=== PATIENT | male | born 1945 | race Caucasian/White ===

== ENCOUNTER 2018-03-27 15:08 | Emergency (ER) | payer MEDICARE ==
[~2018-03-27] VITALS: Ht 180.3 cm; Wt 104.3 kg
[2018-03-27] MEDS ORDERED: ACETAMINOPHEN 325 MG TAB PO STA (15:24)
[2018-03-27] MEDS ORDERED: ENALAPRILAT IV INJ 1.25 MG/ML VIAL IV STA (15:27)
[2018-03-27] MEDS ORDERED: LIDOCAINE HCL 1% LOCAL INJ 20 ML VIAL INJ STA (15:27)
[2018-03-27] MEDS ORDERED: KETOROLAC TROMETHAMINE 30 MG/ML VIAL IV ONE (15:30)
[2018-03-27] MEDS ORDERED: FAMOTIDINE 20 MG/2 ML VIAL IV ONE (15:30)
[2018-03-27] MEDS ORDERED: CLONIDINE HCL 0.1 MG TAB PO ONE (15:30)
[2018-03-27] MEDS ORDERED: ONDANSETRON HCL INJ 2 MG/ML VIAL IV ONE (15:30)
[2018-03-27] MEDS ORDERED: CLONIDINE HCL 0.2 MG TAB PO ONE (16:15)
--- NOTE | 2018-03-27 17:29 | Diagnostic Imaging Report ---
Exam: Right Knee Series. Comparison: <None.> Findings: Two views of the right knee. Bone mineralization is unremarkable. There is mild joint space narrowing in the medial and patellofemoral compartments. There is mild osteophyte formation of the patellofemoral compartment. No evidence of displaced fracture. No significant joint effusion. Bony alignment is unremarkable. There is calcification adjacent to the lateral femoral condyle. Impression: No evidence of fracture or malalignment. Mild medial and patellofemoral compartment osteoarthritis. Mineralization overlying the lateral collateral ligament, which could represent sequela of prior trauma. Signed by: Dr. Cheng Hart MD on 03/27/2018 5:26 PM
[2018-03-27] MEDS ORDERED: DEXAMETHASONE SOD PHOS 10 MG/1 ML VIAL IV ONE (17:45)
[2018-03-27 17:47] LABS: BODY FLUID TYPE SYNOVIAL
[2018-03-27 17:48] LABS: BODY FLUID APPEARANCE TURBID; BODY FLUID COLOR RED
[2018-03-27 17:49] LABS: RBC,BODY FLUID 77880 cells/uL; WBC,BODY FLUID 9680 cells/uL
[2018-03-27 18:17] VITALS: BP 168/99
[2018-03-27 18:57] LABS: LYMPHOCYTES,BODY FLUID 11 %; MONO/MACROPHG,BODY FLUID 7 %; NEUTROPHILS,BODY FLUID 82 %
== END 2018-03-27 18:29 | disposition home or self-care (01) ==
LOC: FSED 15:08
DX: M25.561 Pain in right knee (principal); M17.11 Unilateral primary osteoarthritis, right knee; I10 Essential (primary) hypertension; E11.9 Type 2 diabetes mellitus without complications
CPT/HCPCS: 20610; 36415; 73560; 80053; 85025; 87040; 87070; 87205; 89051; 99284; J1100; J1885; J2001; J2405

== ENCOUNTER 2018-10-06 00:20 | Emergency (ER) | payer MEDICARE ==
[~2018-10-06] VITALS: Ht 180.3 cm; Wt 106.6 kg
[~2018-10-06 00:20] MED LIST: LISINOPRIL10 MG PO; NOVOLOG100 UNIT/1 IJ; SIMVASTATIN80 MG PO
== END 2018-10-06 00:30 | disposition home or self-care (01) ==
LOC: FSED 00:20
DX: T16.1XXA Foreign body in right ear, initial encounter (principal); I10 Essential (primary) hypertension; E78.5 Hyperlipidemia, unspecified; E11.9 Type 2 diabetes mellitus without complications; Z79.4 Long term (current) use of insulin
CPT/HCPCS: 99283

== ENCOUNTER 2018-12-31 16:35 | Emergency (ER) | payer MEDICARE ==
[~2018-12-31] VITALS: Ht 180.3 cm; Wt 63.5 kg
[2018-12-31] MEDS ORDERED: DEXAMETHASONE SOD PHOS 10 MG/1 ML VIAL IM ONE (17:15)
== END 2018-12-31 17:22 | disposition home or self-care (01) ==
LOC: FSED 16:35
DX: M25.532 Pain in left wrist (principal); M10.9 Gout, unspecified; I10 Essential (primary) hypertension; E11.9 Type 2 diabetes mellitus without complications; E78.5 Hyperlipidemia, unspecified
CPT/HCPCS: 99282; J1100

== ENCOUNTER 2019-12-06 15:36 | Emergency (ER) | payer MEDICARE ==
[~2019-12-06] VITALS: Ht 180.3 cm; Wt 108.9 kg
--- NOTE | 2019-12-06 16:34 | Emergency Department Note ---
History of Present Illnes History of Present Illness Chief Complaint: Extremity Trauma/Pain History of Present Illness This is a 74 year old male, with a history of IDDM, hypertension, hyperlipidemia, and gout, who presents with pain and swelling in the left hand. Patient states that approximately 3 days ago, he began having pain in the left elbow. The pain in the elbow subsided, but now he has pain, swelling, and redness of the left hand, specifically the left MCP joint. Patient is typically treated with Allopurinol, but he has run out of this medication, as he states he has been unable to see his doctor at the [place], due to Covid. Patient had some Indocin left over, and he has been taking one dose daily for the past several days, and this has not been helpful. Patient states that the symptoms are consistent with his previous episodes of acute gouty arthritis. He denies any fever, chills, nausea, vomiting, or trauma to the left hand. Patient states that he last saw his [place] doctor approximately 6 months ago, which is also when he last had blood work performed. Patient was seen here on 12/31/2018, with similar symptoms. Historian: Patient Arrival Mode: Car Robotic Machine Tender Production Required: No Onset (how long ago): day(s) (3) Location: left hand and wrist Quality: throbbing, painful Radiation: Reports non-radiation Severity: severe Onset quality: sudden Duration (how long): day(s) (3) Timing of current episode: constant Chronicity: recurrent Context: Denies recent illness, Denies recent surgery, Denies trauma/injury Relieving factors: none Exacerbating factors: none Associated symptoms: Denies cough, Denies fever/chills, Denies nausea/vomiting, Denies rash, Denies weakness Risk factors: DM, HTN, GOUT and out of chronic meds. Past Medical/Family History Physician Review I have reviewed the patient's past medical and family history. Any updates have been documented here. Past Medical History Recent Fever: No Clinical Suspicion of Infectio: No New/Unexplained Change in Ment: No Past Medical History: Hypertension, Diabetes (IDDM), Hyperlipedemia Other Medical History: GOUT' BPH Other Surgery: BILATERIAL EYELID Social History Smoking Cessation: Never Smoker Counseling Performed: No Alcohol Use: None Any Illegal Drug Use: No TB Exposure/Symptoms: No Physically hurt or threatened: No Family History Family history of heart diseas: No Other Last Tetanus: UTD Any Pre-Existing Lines (PICC,: No Is patient up to date on immun: Yes Review of Systems Review of Systems Constitutional: Reports no symptoms EENTM: Reports no symptoms Cardiovascular: Reports no symptoms Respiratory: Reports no symptoms Gastrointestinal: Reports no symptoms Musculoskeletal: Reports as per HPI, Reports gout, Reports joint pain, Reports joint swelling Integumentary: Reports no symptoms Neurological: Reports no symptoms Review of other systems: All other systems negative Physical Exam Related Data Allergies: Coded Allergies: No Known Allergies (Unverified , 09/05/18) Triage Vital Signs Vital Signs Date Time Temp Pulse Resp B/P (MAP) Pulse Ox O2 Delivery O2 Flow Rate FiO2 12/06/19 15:40 97.9 101 18 146/87 97 Vital signs reviewed: Yes Physical Exam CONSTITUTIONAL Constitutional: Present well-developed, Present well-nourished HENT HENT: Present normocephalic, Present atraumatic, Present oropharynx clear/moist, Present nose normal HENT L/R: Present left ext ear normal, Present right ext ear normal EYES Eyes: Reports PERRL, Reports conjunctivae normal NECK PULMONARY Pulmonary: Present effort normal, Present breath sounds normal CARDIOVASCULAR Cardiovascular: Present regular rhythm, Present heart sounds normal, Present capillary refill normal, Present normal rate GASTROINTESTINAL GENITOURINARY SKIN Skin: Present warm, Present dry, Present erythema (overlying the MCP of the left index finger;); Absent bruising MUSCULOSKELETAL Musculoskeletal: Present edema (palpable gouty tophi just below the left elbow; mild edema of left wrist and dorsum of left hand; ), Present tenderness (left wrist and dorsum of left hand ttp, especially the MCP of index finger) NEUROLOGICAL Neurological: Present alert, Present oriented x 3, Present no gross motor or sensory deficits; Absent cranial nerve deficit PSYCHOLOGICAL Psychological: Present mood/affect normal, Present judgement normal Results Laboratory Laboratory CBC - nl except for H/H = 12.4/38.5; BMP - Glu - 133, BUN = 25, Cr = 1.6; Lab results reviewed: Yes Assessment & Plan Medical Decision Making MDM Take the Prednisone and pain medication, as directed. Apply ice to the left hand, at the area of pain, for 15 - 20 minutes, 4x/day, to help with pain and swelling. Keep the left hand and arm ELEVATED to the level of the heart, to help with pain and swelling. Check your blood sugars before each meal, and follow your sliding scale. The Prednisone can cause an increase in your blood sugar. You also need to restrict carbohydrate intake, while taking the Prednisone, including limiting or eliminating: sugars, pasta, potatoes, breads, sodas, etc. DISCONTINUE THE PREDNISONE, IF YOU HAVE 2 CONSECUTIVE BLOOD SUGAR READINGS OF 300, OR GREATER. [facility], to follow-up for treatment of gout. Assessment & Plan Final Impression: (1) Gout attack (2) Hand pain, left (3) DM (diabetes mellitus) (4) HTN (hypertension) Depart Disposition: HOME, SELF-CARE Last Vital Signs Date Time Temp Pulse Resp B/P (MAP) Pulse Ox O2 Delivery O2 Flow Rate FiO2 12/06/19 15:40 97.9 101 18 146/87 97 Home Meds Active Scripts Acetaminophen With Codeine (TYLENOL WITH CODEINE #3 TABLET) 1 Each Tablet, 1-2 TAB PO Q6H PRN for pain, #20 TAB 0 Refills [address] NOT TAKE AND DRIVE OR OPERATE MACHINERY Prov:HARDY BENJAMIN MD 12/06/19 Prednisone (PREDNISONE) 20 Mg Tab, 1 TAB PO DAILY for 7 Days, #7 TAB 0 Refills Prov:HARDY BENJAMIN MD 12/06/19 Reported Medications Simvastatin (SIMVASTATIN) 80 Mg Tablet, 80 MG PO DAILY for HYPERCHOLESTEROL, #30 TAB 09/05/18 Lisinopril (LISINOPRIL) 10 Mg Tablet, 10 MG PO DAILY for HTN, #30 TAB 09/05/18 Insulin Aspart (NOVOLOG) 100 Unit/1 Ml Cartridge, IJ for DIABETES 09/05/18 HARDY BENJAMIN MD Dec 06, 2019 16:34
--- OUTSIDE RECORDS SUMMARY | 2019-12-06 16:58 | XMS REPORT | Continuity of Care Document ---
Author Author [facility] t Organization [facility] Address [address] [place] [address] Phone Unavailable Care Team Providers Care Research Physicist Name Role Phone NONSTAFF PCP Unavailable Reed YATES Attphymiko Unavailable Deidra VELEZ Attphymiko Unavailable Payers Payer Name Policy Type Policy Number Effective Date Expiration Date [place] Medicare A & B [id number] 2014 00:00:00 [facility] Problems This patient has no known problems. Allergies, Adverse Reactions, Alerts This patient has no known allergies or adverse reactions. Medications Ordered Medication Name Filled Medication Name Start Date Stop Da te Current Medication? Ordering Clinician Indication Dosage Frequency Signature (SIG) Comments Components Source Insulin Aspart (Novolog) 100 Unit/1 Ml Cartridge Insul in Aspart (Novolog) 100 Unit/1 Ml Cartridge Yes for Diabetes [facility] Lisinopril 10 Mg Tablet Lisinopril 10 Mg Tablet Yes 10 Daily for Htn [facility] Simvastatin 80 Mg Tablet Simvastatin 80 Mg Tablet Yes 80 Daily for Hypercholesterol [facility] Procedures Procedure Date / Time Performed Performing Clinician Sourc e CLEAR OUTER EAR CANAL 2018-10-06 00:00:00 HARDY BENJAMIN [facility] EMERGENCY DEPT VISIT 2018-09-05 00:00:00 [facility] DRAIN/INJ JOINT/BURSA W/O US 2018-03-27 00:00:[address] [facility] Encounters Start Date/Time End Date/Time Encounter Type Admission Type [facility] Care Department Encounter ID Source 2018-12-31 16:35:00 2018-12-31 17:22:00 Departed Emergency Room [facility] [id number] [facility] 2018-10-06 00:20:00 2018-10-06 00:30:00 Departed Emergency Room [facility] [id number] [facility] 2018-09-05 15:49:00 2018-09-05 21:22:00 Departed Emergency Room 1 JN YATES [facility] [id number] [facility] 2018-03-27 15:08:00 2018-03-27 18:29:00 Departed Emergency Room 1 NITHIN VELEZ [facility] [id number] [facility] Results Test Description Test Time Test Comments Results Result Comments Source Blood Culture 2018-09-11 10:00:00 Test Item Blood Culture (test code = 91901935) NO GROWTH AFTER 5 DAYS, [facility]PORT [facility] [id number] 10:00:00* Test Item Value Reference Range Interpretation Comments Blood Culture (test code = 64097970) NO GROWTH AFTER 5 DAYS, [facility]AL [facility]PORT [facility] EXREMEITY VEINS [id number] 20:48:00 [place] [address] Patient Name: MINGO SPARKS MR #: [id number] : 1945 Age/Sex: 73/M Req #: [id number] Adm Physician: Ordered by: JN YATES MD Report #: [id number] Location: [facility] Room/Bed: Procedure: [id number] 2 HOPD/US EXREMEITY VEINS UNI-HOPD Exam Date: Exam Time: REPORT STATUS: Signed ULT RASOUND LEFT LOWER EXTREMITY Color Doppler evaluation was utilized to suppleme nt the evaluation. HISTORY: Injury, hit by soccer ball, medial left calf, 2-3 days ago, COMPARISON: None available. DISCUSSION: Contacted armando jason availability of the images for review on September 05, 2018 at 2048. The femoral, greater saphenous and popliteal veins were examined using moreno scale compression ultrasound with the aid of color flow and pulsed wave doppler. The common femoral, greater saphenous, superficial femoral, profunda femoris and popliteal veins are normally compressible. Normal pulsed wave Doppler re sponses with calf augmentation. In the left calf region a partially imaged large superficial heterogeneous fluid collection. IMPRESSION: 1. No evidence of deep venous thrombosis in the lower extremity as described above. 2. Large heterogeneous superficial fluid collection, consider an evolving hematoma. Signed by: Dr. Odessa Bell D.O., M.M.M. on 09/05/2018 8:51 PM Dictated By: ODESSA BELL DO 50 Transcribed By: JENIFER on 09/05/182050 COPY TO: JN MONTGOMERY MD Blood [id number] 17:16:00* Test Item Value Reference Range Interpretation Comments Blood Culture (test code = 84690644) NO GROWTH AFTER 5 DAYS, [facility]AL [facility]PORT [facility] Htgkzfzuzjc7395-47-05 18:57:00 * Test Item Value Reference Range Interpretation Comments Body Fluid Neutrophils (test code = 84104-0) 82 [facility] Kaxrjvkopib2401-77-98 18:57:00 * Test Item Value Reference Range Interpretation Comments Body Fluid Lymphocytes (test code = 06571590) 11 [facility] Bwfobkifc8754-69-98 18:57:00* Test Item Value Reference Range Interpretation Comments Body Fluid Monocytes (test code = 52050-2) 7 [facility] Fluid Total Cells [id number] 18:57:00* Test Item Value Reference Range Interpretation Comments Body Fluid Total Cells Counted (test code = 32486-7) 100 [facility] Zsxjvttmerv5106-19-03 18:57:00 * Test Item Value Reference Range Interpretation Comments Body Fluid Neutrophils (test code = 38504-4) 82 [facility] Rpgcysvdbom5063-22-13 18:57:00 * Test Item Value Reference Range Interpretation Comments Body Fluid Lymphocytes (test code = 05368635) 11 [facility] Fluid Jpijabgqr4366-40-11 18:57:00* Test Item Value Reference Range Interpretation Comments Body Fluid Monocytes (test code = 42229-7) 7 [facility] Fluid Total Cells Duknqfh3843-37-32 18:57:00* Test Item Value Reference Range Interpretation Comments Body Fluid Total Cells Counted (test code = 86233-5) 100 [facility] Fluid Waspoaztwha6180-62-26 18:57:00 * Test Item Value Reference Range Interpretation Comments Body Fluid Neutrophils (test code = 93339-4) 82 [facility] Fluid Pyinravxjsk6932-87-90 18:57:00 * Test Item Value Reference Range Interpretation Comments Body Fluid Lymphocytes (test code = 80769456) 11 [facility] Fluid Ohkqydhgk4693-11-99 18:57:00* Test Item Value Reference Range Interpretation Comments Body Fluid Monocytes (test code = 73232-8) 7 [facility] Fluid Total Cells Ocgmhbl8683-39-10 18:57:00* Test Item Value Reference Range Interpretation Comments Body Fluid Total Cells Counted (test code = 73014-9) 100 [facility] Njdx3849-43-12 17:49:00* Test Item Value Reference Range Interpretation Comments Body Fluid Type (test code = 38999-8) SYNOVIAL [facility] Fluid Gaeuc7129-83-59 17:49:00* Test Item Value Reference Range Interpretation Comments Body Fluid Color (test code = 6824-7) RED [facility] Fluid Onmesdtnvd0406-52-80 17:49:00 * Test Item Value Reference Range Interpretation Comments Body Fluid Appearance (test code = 9335-1) TURBID [facility] Fluid [id number] 17:49:00* Test Item Value Reference Range Interpretation Comments Body Fluid WBC (test code = 6743-9) 9680 [facility] [id number] 17:49:00* Test Item Value Reference Range Interpretation Comments Body Fluid RBC (test code = 6741-3) 06935 [facility] Fluid [id number] 17:49:00* Test Item Value Reference Range Interpretation Comments Body Fluid Type (test code = 28056-7) SYNOVIAL [facility] Aubuc8207-60-14 17:49:00* Test Item Value Reference Range Interpretation Comments Body Fluid Color (test code = 6824-7) RED [facility] Xpwpocqcsw3307-64-95 17:49:00 * Test Item Value Reference Range Interpretation Comments Body Fluid Appearance (test code = 9335-1) TURBID [facility] Fluid [id number] 17:49:00* Test Item Value Reference Range Interpretation Comments Body Fluid WBC (test code = 6743-9) 9680 [facility] Fluid [id number] 17:49:00* Test Item Value Reference Range Interpretation Comments Body Fluid RBC (test code = 6741-3) 86691 [facility] Fluid Kqdg4597-24-45 17:49:00* Test Item Value Reference Range Interpretation Comments Body Fluid Type (test code = 36067-3) SYNOVIAL [facility] Rcvbz6774-67-74 17:49:00* Test Item Value Reference Range Interpretation Comments Body Fluid Color (test code = 6824-7) RED [facility] Sglrzdfloc1358-25-94 17:49:00 * Test Item Value Reference Range Interpretation Comments Body Fluid Appearance (test code = 9335-1) TURBID [facility] Fluid [id number] 17:49:00* Test Item Value Reference Range Interpretation Comments Body Fluid WBC (test code = 6743-9) 9680 [facility] [id number] 17:49:00* Test Item Value Reference Range Interpretation Comments Body Fluid RBC (test code = 6741-3) 55993 [facility] Xshl4982-24-32 17:49:00* Test Item Value Reference Range Interpretation Comments Body Fluid Type (test code = 06224-1) SYNOVIAL [facility] Rksgr8339-73-22 17:49:00* Test Item Value Reference Range Interpretation Comments Body Fluid Color (test code = 6824-7) RED [facility] Rftpdlkfec1356-65-68 17:49:00 * Test Item Value Reference Range Interpretation Comments Body Fluid Appearance (test code = 9335-1) TURBID [facility] [id number] 17:49:00* Test Item Value Reference Range Interpretation Comments Body Fluid WBC (test code = 6743-9) 9680 [facility] [id number] 17:49:00* Test Item Value Reference Range Interpretation Comments Body Fluid RBC (test code = 6741-3) 41940 [facility] 2[facility] RT - [id number] 17:19:00 [facility] [address] [place] [id number] Patient Name: MINGO SPARKS MR #: [id number] : 1945 Age/Sex: 72/M Req #: [id number] Adm Physician: Ordered by: NITHIN VELEZ MD Report #: [id number] Location: [facility] Room/Bed: Procedure: [id number] HOP D/KNEE 2VIEW RT - HOPD Exam Date: 03/27/18 Exam Time : 1640 REPORT STATUS: Signed Exam: Right Knee Series. Comparison: <None.> Findings: Two views of the right knee. Bone mineralization is unremarkable. There is mild joint space narrowing in the medial and patellofemoral compartments. There is mild osteophyte formation of the patellofemoral compartment. No evidence of displaced fracture. No significant joint effusion. Bony alignment is unremarkable. There is calcification adjacent to the lateral femoral condyle. Impression: No evidence of fracture or malalignment. Mild medial and patellofemoral compartment osteoarthritis. Mineralization overlying the lateral collateral ligament, which could represent sequela of prior trauma. Signed by: Dr. Hong May MD on 03/27/2018 5:26 PM Dictated By: HONG MAY MD 25 Transcribed By: JENIFER on 03/27/181725 COPY TO: NITHIN VELEZ MD
[2019-12-06] MEDS ORDERED: PREDNISONE 20 MG TAB PO SCH (17:00)
[2019-12-06] MEDS ORDERED: PREDNISONE 20 MG TAB ONE (17:03)
[2019-12-06] MEDS ORDERED: PREDNISONE20 MG PO (17:57)
[2019-12-06] MEDS ORDERED: TYLENOL WITH C1 EACH PO (17:59)
== END 2019-12-06 18:10 | disposition home or self-care (01) ==
LOC: FSED 16:14
DX: M10.9 Gout, unspecified (principal); M79.642 Pain in left hand; E11.65 Type 2 diabetes mellitus with hyperglycemia; I10 Essential (primary) hypertension
CPT/HCPCS: 36415; 82948; 99283; J7512